=== PATIENT | male | born 1970 | race Caucasian/White ===

== ENCOUNTER 2017-10-14 15:19 | Inpatient (IN) | payer BC ==
[2017-10-14] MEDS ORDERED: SODIUM CHLORIDE 0.9% 1,000 ML IV STA (17:57)
[2017-10-14] MEDS ORDERED: KETOROLAC 30 MG/ML 1 ML VIAL IVP STA (17:58)
--- NOTE | 2017-10-14 18:01 | ED ---
General Adult HPI <Roni Harper - Last Filed: 10/14/17 19:59> - General Source: patient, RN notes reviewed Mode of arrival: ambulatory Limitations: no limitations <Elliot Negron - Last Filed: 10/14/17 20:34> - General Chief complaint: Urogenital Stated complaint: Male sent by ME Time Seen by Provider: 10/14/17 17:24 - History of Present Illness Initial comments: 47-year-old male presents to the emergency department for a chief complaint of bilateral lower back pain 5 days. Patient has a history of kidney stones and states this feels consistent to his past kidney stones. Patient saw blood in his urine a few days ago. Patient went to [facility] today and had a urinalysis positive for blood and was sent to the Emergency Department. Patient states he has had nausea for the past few days, denies any vomiting. No diarrhea. Patient denies any abdominal pain. Patient has no other complaints at this time including shortness of breath, chest pain, abdominal pain, nausea or vomiting, headache, or visual changes. (Elliot Negron) - Related Data Home Medications Medication Instructions Recorded Confirmed Gabapentin [Neurontin] 600 mg PO TID 09/25/14 10/14/17 Dextroamphetamine/Amphetamine 30 mg PO QAM 10/14/17 10/14/17 [Adderall Xr] Allergies Allergy/AdvReac Type Severity Reaction Status Date / Time No Known Allergies Allergy Verified 10/14/17 17:24 Review of Systems ROS Other: All systems not noted in ROS Statement are negative. <Roni Harper - Last Filed: 10/14/17 19:59> ROS Other: All systems not noted in ROS Statement are negative. <Elliot Negron - Last Filed: 10/14/17 20:34> ROS Statement: Those systems with pertinent positive or pertinent negative responses have been documented in the HPI. Past Medical History Past Medical History: Asthma Additional Past Medical History / Comment(s): NECK PAINS History of Any Multi-Drug Resistant Organisms: None Reported Past Surgical History: No Surgical Hx Reported Past Psychological History: Anxiety, Depression Smoking Status: Current every day smoker Past Alcohol Use History: None Reported Past Drug Use History: None Reported <Elliot Negron - Last Filed: 10/14/17 20:34> General Exam Limitations: no limitations General appearance: alert, in no apparent distress Head exam: Present: atraumatic, normocephalic, normal inspection Eye exam: Present: normal appearance ENT exam: Present: normal exam, mucous membranes moist Neck exam: Present: normal inspection, full ROM. Absent: tenderness, meningismus, lymphadenopathy Respiratory exam: Present: normal lung sounds bilaterally. Absent: respiratory distress, wheezes, rales, rhonchi, stridor Cardiovascular Exam: Present: regular rate, normal rhythm, normal heart sounds. Absent: systolic murmur, diastolic murmur, rubs, gallop, clicks Back exam: Present: CVA tenderness (R), CVA tenderness (L), paraspinal tenderness (mild paraspinal tenderness). Absent: vertebral tenderness (no cervical, thoracic, or lumbar spine tenderness) Psychiatric exam: Present: normal affect, normal mood <Elliot Negron P - Last Filed: 10/14/17 20:34> Vital Signs 10/14/17 10/14/17 10/14/17 16:03 18:30 19:30 Temperature 100.0 F H 100.9 F H Pulse Rate 83 75 70 Respiratory 16 18 20 Rate Blood Pressure 155/92 152/85 135/82 O2 Sat by Pulse 99 98 98 Oximetry Medical Decision Making - Lab Data Result diagrams: 10/14/17 18:00 10/14/17 18:00 <Roni Harper - Last Filed: 10/14/17 19:59> - Lab Data Result diagrams: 10/14/17 18:00 10/14/17 18:00 <Elliot Negron - Last Filed: 10/14/17 20:34> - Medical Decision Making Patient reevaluated by myself, Dr. Harper. Patient resting comfortably in bed. Mild tenderness left flank/left CVA region. Patient updated on results and plan. Case was discussed in detail with Dr. Simon, who will admit for urology. He recommends Zosyn and nothing by mouth after midnight. Patient does meet sepsis criteria diagnosed at 1959. I did review and agree with PA findings. This includes all diagnostic interpretations and treatment plan. ( Roni Harper) 47-year-old male presents to the emergency department for a chief complaint of lower back pain 5 days. Patient denies any injury. Patient states the pain is similar to past pain with kidney stones. Patient states he did have blood in his urine. Patient states he went to [facility] and was told to come here for kidney stone evaluation. Patient denies any abdominal pain. Patient admits to mild nausea for the past day but denies vomiting. No diarrhea. On exam no abdominal tenderness. Patient does have bilateral CVA tenderness. No pain in the spine. CT does show a distal left obstructing ureteral stone. Patient has a white count of 16 as well as large leukocyte esterase and 150 white blood cells. There is concern for septic stone at this time with patient' s low-grade fever in the emergency department. Dr. Harper spoke with Dr. Bray who recommended admission and to put him on Zosyn and nothing by mouth after midnight. (Elliot Negron) - Lab Data Lab Results 10/14/17 10/14/17 10/14/17 Range/Units 18:00 18:00 18:10 WBC 16.2 H (3.8-10.6) k/uL RBC 4.20 L (4.30-5.90) m/uL Hgb 13.0 (13.0-17.5) gm/dL Hct 38.7 L (39.0-53.0) % MCV 92.3 (80.0-100.0) fL MCH 31.0 (25.0-35.0) pg MCHC 33.6 (31.0-37.0) g/dL RDW 13.3 (11.5-15.5) % Plt Count 265 (150-450) k/uL Neutrophils % 77 % Lymphocytes % 12 % Monocytes % 9 % Eosinophils % 1 % Basophils % 0 % Neutrophils # 12.4 H (1.3-7.7) k/uL Lymphocytes # 2.0 (1.0-4.8) k/uL Monocytes # 1.5 H (0-1.0) k/uL Eosinophils # 0.1 (0-0.7) k/uL Basophils # 0.1 (0-0.2) k/uL Sodium 136 L (137-145) mmol/L Potassium 3.3 L (3.5-5.1) mmol/L Chloride 100 (98-107) mmol/L Carbon Dioxide 25 (22-30) mmol/L Anion Gap 11 mmol/L BUN 7 L (9-20) mg/dL Creatinine 1.00 (0.66-1.25) mg/dL Est GFR (CKD-EPI)AfAm >90 (>60 ml/min/1.73 sqM) Est GFR (CKD-EPI)NonAf 90 (>60 ml/min/1.73 sqM) Glucose 101 H (74-99) mg/dL Calcium 8.9 (8.4-10.2) mg/dL Total Bilirubin 0.5 (0.2-1.3) mg/dL AST 13 L (17-59) U/L ALT 29 (21-72) U/L Alkaline Phosphatase 75 (38-126) U/L Total Protein 6.2 L (6.3-8.2) g/dL Albumin 3.6 (3.5-5.0) g/dL Lipase 18 L (23-300) U/L Urine Color Light Yellow Urine Appearance Cloudy (Clear) Urine pH 6.5 (5.0-8.0) Ur Specific [place] 1.006 (1.001-1.035) Urine Protein 1+ H (Negative) Urine Glucose (UA) Negative (Negative) Urine Ketones Trace H (Negative) Urine Blood Small H (Negative) Urine Nitrite Negative (Negative) Urine Bilirubin Negative (Negative) Urine Urobilinogen <2.0 (<2.0) mg/dL Ur Leukocyte Esterase Large H (Negative) Urine RBC 2 (0-5) /hpf Urine WBC 150 H (0-5) /hpf Urine WBC Clumps Moderate H (None) /hpf Ur Squamous Epith Cells <1 (0-4) /hpf Urine Bacteria Moderate H (None) /hpf Urine Mucus Rare H (None) /hpf Disposition <Roni Harper - Last Filed: 10/14/17 19:59> Is patient prescribed a controlled substance at d/c from ED?: No Time of Disposition: 20:34 <Elliot Negron - Last Filed: 10/14/17 20:34> Clinical Impression: Nephrolithiasis Disposition: ADMITTED IP TO THIS HOSP Condition: Good Referrals: Norberto Gonzalez MD [Primary Care Provider] - 1-2 days
[2017-10-14] MEDS: ONDANSETRON 4 MG/2 ML VIAL IVP STA (18:18)
[2017-10-14 18:52] LABS: ALT 29 U/L (21-72); AST 13 U/L (17-59); Albumin 3.6 g/dL (3.5-5.0); Alkaline Phosphatase 75 U/L (38-126); Anion Gap 11 mmol/L; Basophils # (A) 0.1 k/uL (0-0.2); Basophils % (A) 0 %; Blood Urea Nitrogen 7 mg/dL (9-20); Calcium 8.9 mg/dL (8.4-10.2); Carbon Dioxide 25 mmol/L (22-30); Chloride 100 mmol/L (98-107); Eosinophils # (A) 0.1 k/uL (0-0.7); Eosinophils % (A) 1 %; Glucose 101 mg/dL (74-99); HCT 38.7 % (39.0-53.0); Lipase 18 U/L (23-300); Lymphocytes % (A) 12 %; MCHC 33.6 g/dL (31.0-37.0); MCV 92.3 fL (80.0-100.0); Mean Platelet Volume 6.6; Monocytes # (A) 1.5 k/uL (0-1.0); Monocytes % (A) 9 %; Neutrophils # (A) 12.4 k/uL (1.3-7.7); Neutrophils % (A) 77 %; Platelet Count 265 k/uL (150-450); Potassium 3.3 mmol/L (3.5-5.1); RDW 13.3 % (11.5-15.5); Sodium 136 mmol/L (137-145); Total Bilirubin 0.5 mg/dL (0.2-1.3); Total Protein 6.2 g/dL (6.3-8.2); WBC 16.2 k/uL (3.8-10.6)
[2017-10-14] MEDS ORDERED: ACETAMINOPHEN TAB 500 MG TAB PO STA (19:06)
[2017-10-14 19:10] LABS: Appearance,Urine Cloudy (Clear); Bacteria,Urine Moderate /hpf; Bilirubin,Urine Negative (Negative); Blood,Urine Small (Negative); Color,Urine Light Yellow; Glucose,Urine (UA) Negative (Negative); Ketones,Urine Trace (Negative); Leukocyte Esterase,Urine Large (Negative); Mucus,Urine Rare /hpf; Nitrite,Urine Negative (Negative); PH, Urine 6.5 (5.0-8.0); Protein,Urine 1+ (Negative); RBC,Urine 2 /hpf (0-5); Specific Gravity,Urine 1.006 (1.001-1.035); Squamous Epithelial Cell,Urine <1 /hpf (0-4); Urobilinogen,Urine <2.0 mg/dL (<2.0); WBC,Urine 150 /hpf (0-5)
--- NOTE | 2017-10-14 19:23 | CT ---
EXAMINATION TYPE: CT abdomen pelvis wo con DATE OF EXAM: 10/14/2017 COMPARISON: 04/21/2015 HISTORY: bilateral flank pain, fever, hx of stones CT DLP: 269.4 mGycm Automated exposure control for dose reduction was used. TECHNIQUE: Helical acquisition of images was performed from the lung bases through the pelvis. FINDINGS: There is mild subsegmental atelectasis at the right lung base. Heart size is normal. There is no pleu ral effusion. Liver spleen pancreas appear normal. Gallbladder appears normal. Bile ducts are not dil ated. There is left-sided hydronephrosis with perinephric edema. There are multiple bilateral small renal c alculi. There is 6 mm calcification in the pelvis on the left side consistent with distal left ureter al calculus. The bladder distends smoothly. There is no retroperitoneal adenopathy. Abdominal aorta is atheromatous. There is no ascites. I see n o intestinal wall thickening. There are no dilated loops. There is no evidence of a thickened appendi x. Lumbar spine is intact. IMPRESSION: MULTIPLE BILATERAL RENAL CALCULI. Obstructing calculus in the distal left ureter with hydronephrosis and hydroureter. Perinephric edema .
[2017-10-14] MEDS ORDERED: ACETAMINOPHEN TAB 325 MG TAB PO PRN (20:35)
[2017-10-14] MEDS ORDERED: NALOXONE 0.4 MG/ML 1 ML VIAL IV PRN (20:35)
[2017-10-14] MEDS: SODIUM CHLORIDE 0.9% 1,000 ML IV SCH (21:38)
[2017-10-15] MEDS: PIPERACILLIN-TAZOBACTAM 3.375 GM in DEXTROSE/WATER 1 50ML.BAG IVPB SCH ×3 (04:17→18:31)
[2017-10-15] MEDS: KETOROLAC 30 MG/ML 1 ML VIAL IVP PRN ×2 (06:02→19:40)
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
[2017-10-15] MEDS: SODIUM CHLORIDE 0.9% 1,000 ML IV SCH ×2 (10:41→22:20)
[2017-10-15] MEDS ORDERED: IV FLUID CONTINUATION 1,000 ML IV ONE (11:19)
[2017-10-15] MEDS ORDERED: LIDOCAINE 1% INJ 10MG/ML (20 ML MDV) ONE (12:30)
[2017-10-15] MEDS ORDERED: fentaNYL (PF) 50 MCG/ML 2 ML AMP ONE (12:30)
[2017-10-15] MEDS ORDERED: MIDAZOLAM 2 MG/2 ML VIAL ONE (12:30)
[2017-10-15] MEDS ORDERED: PROPOFOL 10 MG/ML 20 ML VIAL IV ONE (12:30)
[2017-10-15] MEDS ORDERED: NEOSTIGMINE 1 MG/ML 10 ML VIAL ONE (12:30)
[2017-10-15] MEDS ORDERED: GLYCOPYRROLATE 0.2 MG/ML 2 ML VIAL ONE (12:30)
[2017-10-15] MEDS ORDERED: SUCCINYLCHOLINE CHLORIDE 100 MG/5 ML SYR IV ONE (12:30)
[2017-10-15] MEDS ORDERED: ROCURONIUM BROMIDE 10 MG/ML 10 ML VIAL IV ONE (12:30)
[2017-10-15] MEDS ORDERED: IOPAMIDOL-370 50ML BTL MISCELLANE ONE (12:55)
--- NOTE | 2017-10-15 13:07 | P.OP ---
Date of Procedure: 10/15/17 Preoperative Diagnosis: Left Ureteral Calculus Postoperative Diagnosis: Same Procedure(s) Performed: Cystoscopy, Left retrograde pyelogram, left ureteral stent insertion Anesthesia: JERICAA Surgeon: Sudhakar Bray Estimated Blood Loss (ml): 0 IV fluids (ml): 300 Pathology: none sent Condition: stable Disposition: PACU Indications for Procedure: The patient is a 47-year-old white male admitted with acute left pyelonephritis , complicated by a 6 mm left distal ureteral calculus. He now comes for stent insertion. Operative Findings: Obstructing calculus, left distal ureter. Description of Procedure: The patient was taken to the operating room and placed in the dorsolithotomy position, with legs supported in Nigel stirrups. The external genitalia was prepped and draped sterilely. The 30 lens was used to introduce the 19-Norwegian Stortz cystoscopic sheath through the urethra and into the bladder under direct vision. The prostatic urethra showed evidence of minimal lateral lobe enlargement. The bladder was examined in its entirety. Both ureteral orifices were of normal anatomic location and configuration. No tumors or foreign bodies were seen. A 0.035 inch Glidewire was passed through the cystoscope. The left ureteral orifice was cannulated, but the Glidewire could be advanced only approximately 2 cm. An angled tip wire was then used, with the same result. Therefore, using a 10-Norwegian cone-tip catheter, a left retrograde pyelogram was performed. The ureter appeared somewhat dilated, and the retrograde pyelogram appeared to dislodge a calculus. It was then possible to advance the Glidewire up to the renal pelvis. A 28 cm, 4.8-Norwegian double-J ureteral stent was placed over the wire. Proper stent positioning was verified fluoroscopically and endoscopically. The bladder was emptied and the cystoscope removed. The patient tolerated the procedure well was taken to the recovery room in stable condition.
[2017-10-15] MEDS: ONDANSETRON 4 MG/2 ML VIAL IVP STA (13:18)
--- NOTE | 2017-10-15 13:47 | FL ---
EXAMINATION TYPE: FL urography retrograde DATE OF EXAM: 10/15/2017 COMPARISON: NONE HISTORY: Stent insertion TECHNIQUE: Fluoroscopy. 8 secs fl tme stent insertion. 1 image scanned.
[2017-10-15] MEDS ORDERED: HYDROmorphone 1 MG/ML 1 ML SYRINGE IVP ONE ×2 (13:50→13:58)
[2017-10-15] MEDS ORDERED: Potassium Replacement Protocol 1 EACH MISC MISCELLANE PRN (15:04)
[2017-10-15] MEDS: POTASSIUM CHLORIDE ER 20 MEQ TAB.ER PO SCH ×2 (16:11→18:28)
[2017-10-15] MEDS: MORPHINE SULFATE 4 MG/ML SYRINGE IV PRN (16:11)
[2017-10-15] MEDS: GABAPENTIN 300 MG CAP PO SCH ×2 (19:33→22:11)
[2017-10-15] MEDS: OXYBUTYNIN CHLORIDE 5 MG TAB PO SCH (22:11)
[2017-10-16] MEDS: PIPERACILLIN-TAZOBACTAM 3.375 GM in DEXTROSE/WATER 1 50ML.BAG IVPB SCH ×3 (00:55→16:29)
[2017-10-16] MEDS: MORPHINE SULFATE 4 MG/ML SYRINGE IV PRN (01:27)
[2017-10-16] MEDS: NON-FORMULARY DRUG (Dextroamphetamine/Amphetamine [Adderall Xr] 30 MG) PO SCH (07:56)
[2017-10-16] MEDS: OXYBUTYNIN CHLORIDE 5 MG TAB PO SCH ×2 (08:02→16:28)
[2017-10-16] MEDS: GABAPENTIN 300 MG CAP PO SCH ×2 (08:02→16:28)
[2017-10-16] MEDS: KETOROLAC 30 MG/ML 1 ML VIAL IVP PRN ×2 (08:15→16:26)
[2017-10-16] MEDS ORDERED: Acetaminophen-Codeine 300-30mg TAB PO PRN ×2 (09:18)
[2017-10-16] MEDS: SODIUM CHLORIDE 0.9% 1,000 ML IV SCH (11:07)
--- NOTE | 2017-10-16 12:41 | P.PN ---
Progress Note - Text Progress Note Date: 10/16/17 Mr. Navarrete is feeling better. He reports mild left-sided discomfort. He also reports low back pain, which is chronic. He is afebrile. A urine culture has shown greater than 100,000 gram-negative bacilli. Identification of the organism is pending at this time. Blood cultures are negative. In the meantime , he will continue to receive Zosyn.
[2017-10-16 21:53] VITALS: RESP 15
[2017-10-16] MEDS ORDERED: OXYBUTYNIN CHLORIDE 5 MG TAB ONE (23:24)
[2017-10-16] MEDS ORDERED: Acetaminophen-Codeine 300-30mg TAB ONE (23:24)
[2017-10-16] MEDS ORDERED: GABAPENTIN 300 MG CAP ONE (23:24)
[2017-10-17] MEDS: GABAPENTIN 300 MG CAP PO SCH ×2 (05:27→08:13)
[2017-10-17] MEDS: OXYBUTYNIN CHLORIDE 5 MG TAB PO SCH ×2 (05:27→08:13)
[2017-10-17] MEDS: PIPERACILLIN-TAZOBACTAM 3.375 GM in DEXTROSE/WATER 1 50ML.BAG IVPB SCH ×2 (05:28→08:07)
[2017-10-17] MEDS: SODIUM CHLORIDE 0.9% 1,000 ML IV SCH (05:28)
[2017-10-17 05:48] VITALS: BP 129/79; PULSE 63; TEMP 97.9
--- NOTE | 2017-10-17 07:46 | P.DS ---
Providers Date of admission: 10/14/17 20:00 Expected date of discharge: 10/17/17 Attending physician: Sudhakar Bray Primary care physician: Norberto Gonzalez - Discharge Diagnosis(es) (1) Calculus of ureter Current Visit: Yes Status: Acute (2) Hydronephrosis with urinary obstruction due to ureteral calculus Current Visit: Yes Status: Acute (3) Acute pyelonephritis Current Visit: Yes Status: Acute Hospital Course: The patient was admitted with acute left pyelonephritis, complicated by a left distal ureteral calculus. He was treated with parenteral antibiotics. He underwent placement of a left ureteral stent on 10/15/2017. He remained afebrile. The urine culture showed pansensitive E. coli. Procedures: Cystoscopy, left ureteral stent insertion on 10/15/2017. Patient Condition at Discharge: Good Plan - Discharge Summary New Discharge Prescriptions: New Acetaminophen-Codeine 300-30mg [Tylenol w/codeine #3] 1 tab PO Q4H PRN 3 Days #12 tablet PRN Reason: Moderate To Severe Pain Sulfamethox-Tmp 800-160Mg [Bactrim DS 800-160 mg] 1 tab PO Q12HR #30 tab No Action Gabapentin [Neurontin] 600 mg PO TID Dextroamphetamine/Amphetamine [Adderall Xr] 30 mg PO QAM Discharge Medication List Gabapentin [Neurontin] 600 mg PO TID 09/25/14 [History] Dextroamphetamine/Amphetamine [Adderall Xr] 30 mg PO QAM 10/14/17 [History] Acetaminophen-Codeine 300-30mg [Tylenol w/codeine #3] 1 tab PO Q4H PRN 3 Days # 12 tablet 10/17/17 [Rx] Sulfamethox-Tmp 800-160Mg [Bactrim DS 800-160 mg] 1 tab PO Q12HR #30 tab [Rx] Follow up Appointment(s)/Referral(s): Norberto Gonzalez MD [Primary Care Provider] - 1-2 days Activity/Diet/Wound Care/Special Instructions: Diet as tolerated. Activity as tolerated. Arrangements will be made for patient to undergo left ureteroscopy in 10/30/2017. Discharge Disposition: HOME SELF-CARE
[2017-10-17] MEDS: NON-FORMULARY DRUG (Dextroamphetamine/Amphetamine [Adderall Xr] 30 MG) PO SCH (08:12)
== END 2017-10-17 09:25 | disposition home or self-care (01) | DRG 690 ==
LOC: EC 15:19 → 5MS5E 20:00
PROVIDERS: ADMIT Urology; ATTEND Urology
PROC: 0T778DZ Dilation of Left Ureter with Intraluminal Device, Via Natural or Artificial Opening Endoscopic (ICD-10-PCS; principal; 2017-10-14)
PROC: BT1F1ZZ Fluoroscopy of Left Kidney, Ureter and Bladder using Low Osmolar Contrast (ICD-10-PCS; principal; 2017-10-14)
DX: N13.6 Pyonephrosis (principal); F17.200 Nicotine dependence, unspecified, uncomplicated; F90.9 Attention-deficit hyperactivity disorder, unspecified type; G89.29 Other chronic pain; Z79.899 Other long term (current) drug therapy; Z87.442 Personal history of urinary calculi
CPT/HCPCS: 36415; 74176; 74420; 80053; 81001; 83605; 83690; 85025; 87040; 87077; 87086; 87186; 96361; 96374; 96375; 99284

== ENCOUNTER → 2017-10-29 | Outpatient (CLI) | payer BC | END | disposition home or self-care (01) | LOC: LABPAT 10:34 | PROVIDERS: ATTEND Urology | DX: Z01.812 Encounter for preprocedural laboratory examination (principal); N20.1 Calculus of ureter; R35.0 Frequency of micturition; R31.29 Other microscopic hematuria | CPT/HCPCS: 87086 ==

== ENCOUNTER 2017-10-30 11:18 | Day surgery (SDC) | payer BC ==
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
[2017-10-28 09:25] VITALS: BMI 21.5
[~2017-10-30 11:18] MED LIST: DEXAMETHASONE SOD PHOSPHATE 10 MG/ML 1 ML VIAL IV ONE; HYDROmorphone 0.5 MG/0.5 ML SYRINGE IVP PRN; LACTATED RINGERS 1,000 ML IV SCH; MIDAZOLAM 2 MG/2 ML VIAL IV PRN; ONDANSETRON 4 MG/2 ML VIAL IVP ONE; ceFAZolin 1,000 MG in DEXTROSE/WATER 1 50ML.BAG IV ONE
[2017-10-30] MEDS ORDERED: ONDANSETRON 4 MG/2 ML VIAL ONE (12:03)
[2017-10-30 12:20] LABS: Appearance,Urine Cloudy (Clear); Bacteria,Urine Occasional /hpf; Bilirubin,Urine Negative (Negative); Blood,Urine Large (Negative); Color,Urine Yellow; Glucose,Urine (UA) Negative (Negative); Ketones,Urine Negative (Negative); Leukocyte Esterase,Urine Moderate (Negative); Mucus,Urine Many /hpf; Nitrite,Urine Negative (Negative); PH, Urine 6.5 (5.0-8.0); Protein,Urine 2+ (Negative); RBC,Urine >182 /hpf (0-5); Specific Gravity,Urine 1.015 (1.001-1.035); Sperm,Urine Many /hpf; Squamous Epithelial Cell,Urine 4 /hpf (0-4); Urobilinogen,Urine <2.0 mg/dL (<2.0); WBC,Urine 66 /hpf (0-5)
[2017-10-30] MEDS ORDERED: LIDOCAINE 1% 20 ML VIAL (10MG/ML) FOR IV START INTRADERMA ONE (12:24)
[2017-10-30] MEDS ORDERED: DEXAMETHASONE SOD PHOS (MDV) 100 MG/10 ML VIAL IV ONE (12:34)
[2017-10-30] MEDS ORDERED: MIDAZOLAM 2 MG/2 ML VIAL ONE ×2 (13:01→14:13)
[2017-10-30] MEDS ORDERED: LIDOCAINE 1% INJ 10MG/ML (20 ML MDV) ONE (14:13)
[2017-10-30] MEDS ORDERED: PROPOFOL 10 MG/ML 20 ML VIAL IV ONE (14:13)
[2017-10-30] MEDS ORDERED: SUCCINYLCHOLINE CHLORIDE 100 MG/5 ML SYR IV ONE (14:13)
[2017-10-30] MEDS ORDERED: fentaNYL (PF) 50 MCG/ML 2 ML AMP ONE (14:13)
[2017-10-30] MEDS ORDERED: ceFAZolin 1,000 MG/50 ML BAG (PMX) IVPB ONE (14:13)
--- NOTE | 2017-10-30 15:00 | P.OP ---
Date of Procedure: 10/30/17 Preoperative Diagnosis: Left ureteral calculus Postoperative Diagnosis: Same Procedure(s) Performed: Cystoscopy, left ureteral stent removal, left ureteroscopy with Holmium laser lithotripsy Anesthesia: JERICAA Surgeon: Sudhakar Bray Estimated Blood Loss (ml): 0 IV fluids (ml): 400 Pathology: none sent Condition: stable Disposition: PACU Indications for Procedure: The patient is a 47-year-old male recently hospitalized with acute left pyelonephritis complicated by a 6 mm left distal ureteral calculus. He underwent left ureteral stent insertion. A urine culture revealed an Escherichia coli UTI, for which he is taking Bactrim. He now comes for removal of his stent, along with ureteroscopy and laser lithotripsy to remove the ureteral calculus. Operative Findings: Left distal ureteral calculus, fragmented completely. Description of Procedure: The patient was taken to the operating room and placed in the dorsolithotomy position, with legs supported in Nigel stirrups. The external genitalia was prepped and draped sterilely. The 30 lens was used to introduce the 19-Tongan Stortz cystoscopic sheath through the urethra and into the bladder under direct vision. The prostatic urethra showed evidence of mild lateral lobe enlargement. The bladder was examined in its entirety. No tumors or foreign bodies were seen. Grasping forceps were used to grasp the distal end of the left ureteral stent, which was removed along with the cystoscope. The [facility] semirigid ureteroscope was advanced into the bladder, and the left ureteral orifice was cannulated. The ureteroscope was advanced up to the level of the calculus, which measured 5-6 mm in diameter. The 365 micron Holmium laser probe was passed through the ureteroscope, and lithotripsy was performed. Lithotripsy was continued until there were no remaining residual calculus fragments exceeding 1-2 mm in size. The bladder was emptied and the cystoscope removed. The patient tolerated the procedure well and was taken to the recovery room in stable condition.
[2017-10-30 15:08] VITALS: TEMP 97.2
[2017-10-30 15:17] VITALS: RESP 16
[2017-10-30] MEDS: HYDROmorphone 1 MG/ML 1 ML SYRINGE IVP ONE ×4 (15:45→16:03)
[2017-10-30 16:38] VITALS: BP 158/92; PULSE 55
== END 2017-10-30 16:43 | disposition home or self-care (01) ==
LOC: OR 11:18
PROVIDERS: ATTEND Urology
DX: N20.1 Calculus of ureter (principal); N10 Acute pyelonephritis; B96.20 Unspecified Escherichia coli [E. coli] as the cause of diseases classified elsewhere; Z46.6 Encounter for fitting and adjustment of urinary device; J45.909 Unspecified asthma, uncomplicated; F90.9 Attention-deficit hyperactivity disorder, unspecified type; F41.9 Anxiety disorder, unspecified; F32.9 Major depressive disorder, single episode, unspecified; Z87.891 Personal history of nicotine dependence; Z79.2 Long term (current) use of antibiotics; Z79.899 Other long term (current) drug therapy
CPT/HCPCS: 84132; 81001; 52317; J2250; J2405; J2001; J3010; J1170; J0690; J1100; J0330; J2704

== ENCOUNTER 2019-05-18 05:57 | Emergency (ER) | payer BC, OTHER ==
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
--- NOTE | 2019-05-18 06:59 | XR ---
EXAMINATION TYPE: XR chest 2V DATE OF EXAM: 05/18/2019 COMPARISON: 09/25/2014 HISTORY: Cough TECHNIQUE: FINDINGS: Heart and mediastinum are normal. There is some patchy airspace consolidation in the right middle lobe. There is probably a minimal infiltrate also in the left lower lobe.. There is no pleural effusion. Bony thorax is intact. IMPRESSION: There is right middle lobe pneumonia that appears new compared to old exam. Normal heart.
[2019-05-18] MEDS ORDERED: cefTRIAXone 1,000 MG VIAL (IM USE) IM STA (07:21)
[2019-05-18 08:08] VITALS: BP 150/99; PULSE 82; RESP 18; TEMP 98.9
== END 2019-05-18 08:08 | disposition home or self-care (01) ==
LOC: EC 05:57
DX: J18.9 Pneumonia, unspecified organism (principal); Z71.6 Tobacco abuse counseling; J45.909 Unspecified asthma, uncomplicated; F90.9 Attention-deficit hyperactivity disorder, unspecified type; F17.200 Nicotine dependence, unspecified, uncomplicated; Z79.899 Other long term (current) drug therapy
CPT/HCPCS: 87502; 71046; 99284; 99406; 96372; J0696

== ENCOUNTER → 2020-02-02 | Outpatient (CLI) | payer OTHER | END | disposition home or self-care (01) | LOC: LABWHC1 14:14 | PROVIDERS: ATTEND Family Medicine | DX: R05 Cough (principal); R51.9 Headache, unspecified; R09.89 Other specified symptoms and signs involving the circulatory and respiratory systems | CPT/HCPCS: U0003; C9803 ==

== ENCOUNTER 2020-12-13 14:24 | Emergency (ER) | payer OTHER ==
[2020-12-13 14:46] VITALS: BP 161/95; PULSE 94; RESP 18; TEMP 97.7
[2020-12-13] MEDS ORDERED: SODIUM CHLORIDE 0.9% 1,000 ML IV STA (16:05)
[2020-12-13] MEDS ORDERED: KETOROLAC 15 MG/ML 1 ML VIAL IVP STA (16:05)
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
[2020-12-13 16:11] LABS: Basophils # (A) 0.1 k/uL (0-0.2); Basophils % (A) 1 %; Eosinophils # (A) 0.5 k/uL (0-0.7); Eosinophils % (A) 3 %; HCT 51.1 % (39.0-53.0); HGB 17.4 gm/dL (13.0-17.5); Lymphocytes # (A) 2.4 k/uL (1.0-4.8); Lymphocytes % (A) 16 %; MCH 33.1 pg (25.0-35.0); MCHC 34.1 g/dL (31.0-37.0); MCV 97.1 fL (80.0-100.0); Mean Platelet Volume 7.2; Monocytes # (A) 0.7 k/uL (0-1.0); Monocytes % (A) 5 %; Neutrophils # (A) 11.1 k/uL (1.3-7.7); Neutrophils % (A) 74 %; Platelet Count 332 k/uL (150-450); RBC 5.26 m/uL (4.30-5.90); RDW 13.2 % (11.5-15.5); WBC 14.9 k/uL (3.8-10.6)
[2020-12-13 16:14] LABS: Appearance,Urine Clear (Clear); Bilirubin,Urine Negative (Negative); Blood,Urine Negative (Negative); Color,Urine Yellow; Glucose,Urine (UA) Negative (Negative); Ketones,Urine Negative (Negative); Leukocyte Esterase,Urine Moderate (Negative); Mucus,Urine Rare /hpf; Nitrite,Urine Negative (Negative); Protein,Urine Trace (Negative); RBC,Urine 1 /hpf (0-5); Squamous Epithelial Cell,Urine <1 /hpf (0-4); Urobilinogen,Urine <2.0 mg/dL (<2.0); WBC,Urine 23 /hpf (0-5)
[2020-12-13 16:20] LABS: Potassium 4.2 mmol/L (3.5-5.1)
--- NOTE | 2020-12-13 17:16 | US ---
EXAMINATION TYPE: US kidneys/renal and bladder DATE OF EXAM: 12/13/2020 COMPARISON: US, CT CLINICAL HISTORY: flank pain. Flank pain. Hx stones, stent with removal. EXAM MEASUREMENTS: Right Kidney: 9.7 x 4.7 x 4.0 cm Left Kidney: 9.5 x 5.3 x 4.9 cm Right Kidney: Hyperechoic focus seen: 0.4 x 0.4 x 0.2 cm. Pyramids appear prominent. Left Kidney: Hyperechoic focus seen: 0.6 x 0.4 x 0.5 cm. Pyramids appear prominent. Bladder: Anechoic. Bilateral Jets seen: No IMPRESSION: Echogenic foci in the kidney consistent with calculi. No hydronephrosis. No evidence of a bladder mass.
[2020-12-13] MEDS ORDERED: MORPHINE SULFATE 4 MG/ML SYRINGE IVP STA (17:39)
[2020-12-14 14:16] LABS: C. trachomatis,PCR Negative (Neg,Equiv); Chlamydia trachomatis Source Urine; N. gonorrhoeae,PCR Negative (Neg,Equiv); Neisseria Source Urine
== END 2020-12-13 17:48 | disposition home or self-care (01) ==
LOC: EC 14:24
DX: R10.9 Unspecified abdominal pain (principal); M54.5 Low back pain; D72.829 Elevated white blood cell count, unspecified; F17.200 Nicotine dependence, unspecified, uncomplicated; J45.909 Unspecified asthma, uncomplicated; Z87.442 Personal history of urinary calculi
CPT/HCPCS: 36415; 80048; 85025; 81001; 87491; 87591; 87086; 76770; 99284; 96374; 96375; 96361; J2270; J1885

== ENCOUNTER 2021-05-03 13:06 | Emergency (ER) | payer OTHER ==
[2021-05-03 13:09] VITALS: BP 180/104; PULSE 77; RESP 20; TEMP 97.6
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
== END 2021-05-03 14:07 | disposition home or self-care (01) ==
LOC: EC 13:06
DX: U07.1 COVID-19 (principal); J45.909 Unspecified asthma, uncomplicated; F17.200 Nicotine dependence, unspecified, uncomplicated; F12.90 Cannabis use, unspecified, uncomplicated; F90.9 Attention-deficit hyperactivity disorder, unspecified type; Z79.899 Other long term (current) drug therapy
CPT/HCPCS: 87635; 99283